=== PATIENT | male | born 1955 | race Caucasian/White ===

== ENCOUNTER → 2016-12-21 | Outpatient (CLI) | payer OTHER | END | disposition disaster alternative care site (69) | LOC: GLAB 08:00 | DX: D49.7 Neoplasm of unspecified behavior of endocrine glands and other parts of nervous system (principal) ==

== ENCOUNTER → 2017-02-11 | Outpatient (CLI) | payer OTHER | END | disposition disaster alternative care site (69) | LOC: GLAB 01-15 10:00 | DX: D47.9 Neoplasm of uncertain behavior of lymphoid, hematopoietic and related tissue, unspecified (principal) ==

== ENCOUNTER → 2017-05-08 | Outpatient (CLI) | payer OTHER | END | disposition disaster alternative care site (69) | LOC: GLAB 08:00 | DX: D49.7 Neoplasm of unspecified behavior of endocrine glands and other parts of nervous system (principal) ==